=== PATIENT | male | born 1980 | race Caucasian/White ===

== ENCOUNTER 2017-10-26 11:03 | Observation (INO) ==
[2017-10-26 11:36] LABS: Bilirubin,Urine Negative (Negative); Blood,Urine Large (Negative); Clarity,Urine Turbid (Clear); Color,Urine Yellow (Yellow); Glucose,Urine (UA) Normal (Normal); Ketones,Urine Negative (Negative); Leukocyte Esterase,Urine Large (Negative); Nitrite,Urine Negative (Negative); Protein,Urine 100 mg/dL (Neg-Trace); Specific Gravity,Urine 1.029 (1.010-1.025); Urobilinogen,Urine Normal (Normal)
[2017-10-26 11:39] LABS: Hyaline Casts,Urine None Seen per lpf (None-Few); Squamous Epithelial Cell,Urine Few per lpf (None-Few); WBC,Urine TNTC per hpf (0-3)
[2017-10-26 11:53] LABS: RBC,Urine 15-30 per hpf (0-3)
[2017-10-26 11:55] LABS: Yeast,Urine Many per hpf (None Seen)
[2017-10-26 11:56] LABS: Bacteria,Urine Few per hpf (None-Few)
[2017-10-26] MEDS ORDERED: Ondansetron 4 MG/2 ML VIAL IVP ONE (13:17)
[2017-10-26] MEDS ORDERED: 0.9 % Sodium Chloride 1,000 ML IVC ONE (13:17)
[2017-10-26] MEDS ORDERED: Ketorolac 30 MG/ML VIAL IVP ONE (13:17)
--- NOTE | 2017-10-26 13:55 | Emergency Department Note ---
Disposition Clinical Impression: Pyelonephritis, Ureterolithiasis, MARIALUISA (acute kidney injury) Disposition: Admitted As Inpatient Condition: Good General Adult HPI - General Chief complaint: ED Abdominal Pain Stated complaint: Poss Kidney stone Time Seen by Provider: 10/26/17 12:48 Source: patient Limitations: no limitations Nursing Notes Reviewed: Yes Vital Signs Reviewed: Yes - History of Present Illness Pain Scale: 8 - Related Data Home Medications Medication Instructions Recorded Confirmed Buprenorphine HCl/Naloxone HCl 1 each SL BID 06/18/16 10/26/17 [Suboxone 8 mg-2 mg Sl Film] Ibuprofen [Motrin] 400 mg PO Q6H PRN 10/26/17 10/26/17 Allergies Allergy/AdvReac Type Severity Reaction Status Date / Time hydrocodone AdvReac Palpitation Verified 04/14/16 11:43 s tramadol AdvReac Palpitation Verified 04/14/16 11:43 s Past Medical History - Past Medical History Medical history: Reports: no medical history Surgical history: Reports: no surgical history Psychiatric history: Reports: no psych history, other - Social History Smoking Status: Current every day smoker Smokeless Tobacco Status: No Alcohol use: Reports: none Drug use: Reports: none, other Physical Exam - General Limitations: no limitations General appearance: alert, in no apparent distress Course Vital Signs Temperature 98.0 F 10/26/17 11:16 Pulse Rate 78 10/26/17 11:16 Respiratory Rate 18 10/26/17 11:16 Blood Pressure 156/94 10/26/17 11:16 O2 Sat by Pulse Oximetry 98 10/26/17 11:16 Temperature 99.3 F 10/26/17 12:43 Pulse Rate 97 10/26/17 16:16 Respiratory Rate 16 10/26/17 16:16 Blood Pressure 144/80 10/26/17 16:16 O2 Sat by Pulse Oximetry 98 10/26/17 16:16 Oxygen Delivery Oxygen Delivery Room Air Medical Decision Making - MDM Narrative Medical decision making narrative: This documentation is done with the assistance of Dragon dictation. There may be inaccuracies in company manager or spelling and typographical errors. I examined this patient and my medical decision-making was reviewed with the Resident Physician. I agree with the documented findings, disposition and treatment plan as described except to the extent set forth below. Patient seen and evaluated by Dr. Thomas and myself, I agree with his evaluation and management plan, supervised the care of the patient's stay. Patient presents today with bilateral flank pain left greater than right. History of stents years ago first with some thick kidney stone at the time. No history of pyelonephritis. Patient is comfortable at this time his urinalysis shows a lot of white cells in urine. Benadryl workup on him CT his abdomen to rule out stone and other pathology than reassessed. He is in agreement with this plan. 1427 hrs.: Patient has difficulty with IV access is former heroin addict. One of her best nurses try to put an IV and was unable to her and consult invasive line treatment for midline placement. He is in agreement with plan. Abdomen/Pelvis CT 10/26/17 13:22 IMPRESSION: 1. Mild left hydronephrosis and hydroureter, secondary to a 3-4 mm calculus in the distal left ureter. 2. Punctate right nephrolithiasis without evidence for right-sided obstructive uropathy. 3. Mild bibasilar atelectasis and trace pleural fluid. 4. Broad-based disc bulge at L1-L2, resulting in at least mild spinal canal stenosis at this level. D/ / 10/26/2017 14:56:48 Sherice Metz / marva Interpreting Provider: Sherice Metz 1500: Patient was referred to Dr. Stewart for urology he is in the department noticing the patient. Estimated minimal to the hospitalist with neurology consulting. Patient is difficult to get an IV access and so where having the invasive line team come to see him. 1700 hrs.: They really get an IV line in here. He has got his IV antibiotics and medications feeling better will bring him into the hospital. He should say agreement with plan impressions UTI with kidney stone. - Lab Data Result diagrams: 10/26/17 15:47 10/26/17 13:57 Lab Results 10/26/17 10/26/17 10/26/17 Range/Units 11:17 13:57 13:57 WBC (4.3-11.1) K/mcL RBC (4.19-5.50) M/mcL Hgb (12.9-16.9) g/dL Hct (37.5-50.1) % MCV (83.0-100.0) fL MCH (28.0-33.3) pg MCHC (31.6-35.5) g/dL RDW (11.5-14.5) % Plt Count (140-400) K/mcL MPV (9.4-12.4) fL Immature Gran % (0-4) % Seg Neutrophils % % Lymphocytes % % Monocytes % % Eosinophils % % Basophils % % Neutrophils # (1.6-8.9) K/mcL Lymphocytes # (0.6-4.6) K/mcL Monocytes # (0.0-1.3) K/mcL Eosinophils # (0.0-0.6) K/mcL Basophils # (0.0-0.2) K/mcL Sodium 136 (136-145) mEq/L Potassium 4.5 (3.5-5.1) mEq/L Chloride 108 H (98-107) mEq/L Carbon Dioxide 20 L (23-29) mEq/L BUN 23 H (6-20) mg/dL Creatinine 1.53 H (0.70-1.30) mg/dL Est GFR ( Amer) > 60 (> 60) Est GFR (Non-Af Amer) 51 L (> 60) BUN/Creatinine Ratio 15 (6-26) Glucose 156 H (70-105) mg/dL Calculated Osmolality 289 (280-300) Calcium 9.4 (8.6-10.3) mg/dL Total Bilirubin 0.4 (0.3-1.0) mg/dL Direct Bilirubin 0.1 (0.0-0.2) mg/dL Indirect Bilirubin 0.3 (0.0-1.2) mg/dL AST 22 (13-39) Units/L ALT 32 (7-52) Units/L Alkaline Phosphatase 68 (34-104) Units/L Serum Total Protein 6.6 (6.4-8.9) g/dL Albumin 3.7 (3.5-5.7) g/dL Globulin 2.9 (2.4-3.5) g/dL Albumin/Globulin Ratio 1.3 (1.1-2.2) Lipase 15 (11-82) Units/L Urine Color Yellow (Yellow) Urine Clarity Turbid A (Clear) Urine pH 6.0 (5.0-8.0) pH Units Ur Specific [place] 1.029 H (1.010-1.025) Urine Protein 100 H (Neg-Trace) mg/dL Urine Glucose (UA) Normal (Normal) mg/dL Urine Ketones Negative (Negative) mg/dL Urine Blood Large H (Negative) Urine Nitrite Negative (Negative) Urine Bilirubin Negative (Negative) Urine Urobilinogen Normal (Normal) mg/dL Ur Leukocyte Esterase Large H (Negative) Urine Microscopic RBC 15-30 H (0-3) per hpf Urine Microscopic WBC TNTC H (0-3) per hpf Ur Squamous Epith Cells Few (None-Few) per lpf Urine Bacteria Few (None-Few) per hpf Hyaline Casts None Seen (None-Few) per lpf Urine Yeast Many H (None Seen) per hpf Ur Culture Indicated? YES A (NO) Specimen Rejected Clotted 10/26/17 Range/Units 15:47 WBC 11.5 H (4.3-11.1) K/mcL RBC 4.55 (4.19-5.50) M/mcL Hgb 12.8 L (12.9-16.9) g/dL Hct 38.5 (37.5-50.1) % MCV 84.6 (83.0-100.0) fL MCH 28.1 (28.0-33.3) pg MCHC 33.2 (31.6-35.5) g/dL RDW 13.9 (11.5-14.5) % Plt Count 169 (140-400) K/mcL MPV 11.0 (9.4-12.4) fL Immature Gran % 0.5 (0-4) % Seg Neutrophils % 84.2 % Lymphocytes % 9.1 % Monocytes % 4.9 % Eosinophils % 1.0 % Basophils % 0.3 % Neutrophils # 9.7 H (1.6-8.9) K/mcL Lymphocytes # 1.0 (0.6-4.6) K/mcL Monocytes # 0.6 (0.0-1.3) K/mcL Eosinophils # 0.1 (0.0-0.6) K/mcL Basophils # 0.0 (0.0-0.2) K/mcL Sodium (136-145) mEq/L Potassium (3.5-5.1) mEq/L Chloride (98-107) mEq/L Carbon Dioxide (23-29) mEq/L BUN (6-20) mg/dL Creatinine (0.70-1.30) mg/dL Est GFR ( Amer) (> 60) Est GFR (Non-Af Amer) (> 60) BUN/Creatinine Ratio (6-26) Glucose (70-105) mg/dL Calculated Osmolality (280-300) Calcium (8.6-10.3) mg/dL Total Bilirubin (0.3-1.0) mg/dL Direct Bilirubin (0.0-0.2) mg/dL Indirect Bilirubin (0.0-1.2) mg/dL AST (13-39) Units/L ALT (7-52) Units/L Alkaline Phosphatase (34-104) Units/L Serum Total Protein (6.4-8.9) g/dL Albumin (3.5-5.7) g/dL Globulin (2.4-3.5) g/dL Albumin/Globulin Ratio (1.1-2.2) Lipase (11-82) Units/L Urine Color (Yellow) Urine Clarity (Clear) Urine pH (5.0-8.0) pH Units Ur Specific [place] (1.010-1.025) Urine Protein (Neg-Trace) mg/dL Urine Glucose (UA) (Normal) mg/dL Urine Ketones (Negative) mg/dL Urine Blood (Negative) Urine Nitrite (Negative) Urine Bilirubin (Negative) Urine Urobilinogen (Normal) mg/dL Ur Leukocyte Esterase (Negative) Urine Microscopic RBC (0-3) per hpf Urine Microscopic WBC (0-3) per hpf Ur Squamous Epith Cells (None-Few) per lpf Urine Bacteria (None-Few) per hpf Hyaline Casts (None-Few) per lpf Urine Yeast (None Seen) per hpf Ur Culture Indicated? (NO) Specimen Rejected
--- NOTE | 2017-10-26 14:03 | Emergency Department Note ---
Disposition Clinical Impression: Pyelonephritis, Ureterolithiasis, MARIALUISA (acute kidney injury) Disposition: Admitted As Inpatient Condition: Good Referrals: NONE,PCP [Primary Care Provider] - Forms: ED Satisfaction Letter, Work/School Release Abdominal Pain HPI - General Chief Complaint: ED Abdominal Pain Stated Complaint: Poss Kidney stone Time Seen by Provider: 10/26/17 12:48 Source: patient Mode of arrival: private vehicle Limitations: no limitations Nursing Notes Reviewed: Yes Vital Signs Reviewed: Yes - History of Present Illness HPI Narrative: 37-year-old male prior history of nephrolithiasis, drug abuse currently on Suboxone who presents to the ER with a chief complaint of low back pain, nausea , chills and subjective fevers. Reports symptoms for a few days. He was seen in an urgent care today where they checked his urine and told him to come here. Reports a remote history of ureteral stent 12 years ago due to obstructive uropathy. He denies any gross hematuria. No fevers at home but he has had subjective fevers and chills. No other complaints. Pt Subjective Complaint: abdominal pain, flank pain Onset (ago): day(s) Consistency: intermittent Location: L flank, R flank Pain Severity: moderate Pain Scale: 8 Quality: stabbing Radiation: none Migration to: no migration Improves with: nothing Worsens with: nothing Associated symptoms: Reports: nausea, vomiting, fever. Denies: diarrhea, dysuria, hematuria Treatments prior to arrival: none - Related Data Home Medications Medication Instructions Recorded Confirmed Buprenorphine HCl/Naloxone HCl 1 each SL BID 06/18/16 10/26/17 [Suboxone 8 mg-2 mg Sl Film] Ibuprofen [Motrin] 400 mg PO Q6H PRN 10/26/17 10/26/17 Allergies Allergy/AdvReac Type Severity Reaction Status Date / Time hydrocodone AdvReac Palpitation Verified 04/14/16 11:43 s tramadol AdvReac Palpitation Verified 04/14/16 11:43 s All systems ED: reviewed and negative except as stated. Constitutional: Reports: fever, chills Gastrointestinal: Reports: abdominal pain, nausea, vomiting. Denies: diarrhea Genitourinary: Denies: dysuria, hematuria Abdominal Pain PMH - Past Medical History Medical history: Reports: no medical history Male Surgical History: Reports: orthopedic, other Psychiatric history: Reports: no psych history, other - Social History Smoking status: Current every day smoker Alcohol use: Reports: none Drug use: Reports: none, other Physical Exam - General Limitations: no limitations General appearance: alert, in no apparent distress - Head Head exam: atraumatic, normocephalic - Eye Eye exam: Present: normal appearance - ENT ENT exam: normal exam - Neck Neck exam: Present: normal inspection, full ROM - Chest Chest inspection: Present: normal inspection, symmetric chest wall rise - Respiratory Respiratory exam: Present: normal lung sounds bilaterally - Cardiovascular Cardiovascular exam: Present: regular rate, normal rhythm, normal heart sounds - Abdominal Exam Abdominal exam: Present: soft, Non-Tender. Absent: tenderness, distention, guarding, rigidity - Extremities Exam Extremities exam: Present: normal inspection, full ROM - Expanded Upper Extremity Exam Shoulder exam: Present: normal inspection, full ROM Arm exam: Present: normal inspection, full ROM Elbow exam: Present: normal inspection, full ROM Forearm/Wrist exam: Present: normal inspection, full ROM Hand exam: Present: normal inspection, full ROM - Expanded Lower Extremity Exam Hip/Pelvis exam: Present: normal inspection, full ROM Upper leg exam: Present: normal inspection, full ROM Knee exam: Present: normal inspection, full ROM Lower leg exam: Present: normal inspection, full ROM Ankle exam: Present: normal inspection, full ROM Foot/toe exam: Present: normal inspection, full ROM - Back Exam Back exam: Present: CVA tenderness (R), CVA tenderness (L) - Skin Skin exam: Present: warm, dry Course Course Narrative: Patient seen and examined. Urinalysis does demonstrate some inflammatory cells. We will get a CT scan of the abdomen and pelvis as well as labs. Patient be given some IV fluids, Toradol and Zofran. - Reevaluation(s) Reevaluation #1: Patient noted to have a temperature 103. Tylenol ordered. Reevaluation #2: Discussed results of imaging and labs with the patient. He is agreeable with being admitted to the hospital. - Consultations Consultation #1: Spoke with the on-call urologist in the emergency department. Discussed the patient's history imaging and labs. He will see the patient in consultation. Admit to the hospitalist service. Vital Signs Temperature 98.0 F 10/26/17 11:16 Pulse Rate 78 10/26/17 11:16 Respiratory Rate 18 10/26/17 11:16 Blood Pressure 156/94 10/26/17 11:16 O2 Sat by Pulse Oximetry 98 10/26/17 11:16 Temperature 99.3 F 10/26/17 12:43 Pulse Rate 97 10/26/17 16:16 Respiratory Rate 16 10/26/17 16:16 Blood Pressure 144/80 10/26/17 16:16 O2 Sat by Pulse Oximetry 98 10/26/17 16:16 Oxygen Delivery Oxygen Delivery Room Air Abdominal Pain - MDM Narrative Medical decision making narrative: 37-year-old male presents to the ER due to bilateral flank pain for several days. Noted to be initially afebrile here although he did have a temperature up to 103. Given antipyretics for this. He has bilateral flank pain. CT scan demonstrating a distal left ureteral stone. Urinalysis demonstrates inflammatory cells as well as [place]. Noted to have a slight leukocytosis and mild history of present illness. Patient given Rocephin and Diflucan. Evaluated by urology in the department. Admitted to the hospitalist service. - Lab Data Lab results reviewed: Yes I reviewed the patient's lab results. Result diagrams: 10/26/17 15:47 10/26/17 13:57 Lab Results 10/26/17 10/26/17 10/26/17 Range/Units 11:17 13:57 13:57 WBC (4.3-11.1) K/mcL RBC (4.19-5.50) M/mcL Hgb (12.9-16.9) g/dL Hct (37.5-50.1) % MCV (83.0-100.0) fL MCH (28.0-33.3) pg MCHC (31.6-35.5) g/dL RDW (11.5-14.5) % Plt Count (140-400) K/mcL MPV (9.4-12.4) fL Immature Gran % (0-4) % Seg Neutrophils % % Lymphocytes % % Monocytes % % Eosinophils % % Basophils % % Neutrophils # (1.6-8.9) K/mcL Lymphocytes # (0.6-4.6) K/mcL Monocytes # (0.0-1.3) K/mcL Eosinophils # (0.0-0.6) K/mcL Basophils # (0.0-0.2) K/mcL Sodium 136 (136-145) mEq/L Potassium 4.5 (3.5-5.1) mEq/L Chloride 108 H (98-107) mEq/L Carbon Dioxide 20 L (23-29) mEq/L BUN 23 H (6-20) mg/dL Creatinine 1.53 H (0.70-1.30) mg/dL Est GFR ( Amer) > 60 (> 60) Est GFR (Non-Af Amer) 51 L (> 60) BUN/Creatinine Ratio 15 (6-26) Glucose 156 H (70-105) mg/dL Calculated Osmolality 289 (280-300) Calcium 9.4 (8.6-10.3) mg/dL Total Bilirubin 0.4 (0.3-1.0) mg/dL Direct Bilirubin 0.1 (0.0-0.2) mg/dL Indirect Bilirubin 0.3 (0.0-1.2) mg/dL AST 22 (13-39) Units/L ALT 32 (7-52) Units/L Alkaline Phosphatase 68 (34-104) Units/L Serum Total Protein 6.6 (6.4-8.9) g/dL Albumin 3.7 (3.5-5.7) g/dL Globulin 2.9 (2.4-3.5) g/dL Albumin/Globulin Ratio 1.3 (1.1-2.2) Lipase 15 (11-82) Units/L Urine Color Yellow (Yellow) Urine Clarity Turbid A (Clear) Urine pH 6.0 (5.0-8.0) pH Units Ur Specific [place] 1.029 H (1.010-1.025) Urine Protein 100 H (Neg-Trace) mg/dL Urine Glucose (UA) Normal (Normal) mg/dL Urine Ketones Negative (Negative) mg/dL Urine Blood Large H (Negative) Urine Nitrite Negative (Negative) Urine Bilirubin Negative (Negative) Urine Urobilinogen Normal (Normal) mg/dL Ur Leukocyte Esterase Large H (Negative) Urine Microscopic RBC 15-30 H (0-3) per hpf Urine Microscopic WBC TNTC H (0-3) per hpf Ur Squamous Epith Cells Few (None-Few) per lpf Urine Bacteria Few (None-Few) per hpf Hyaline Casts None Seen (None-Few) per lpf Urine Yeast Many H (None Seen) per hpf Ur Culture Indicated? YES A (NO) Specimen Rejected Clotted 10/26/17 Range/Units 15:47 WBC 11.5 H (4.3-11.1) K/mcL RBC 4.55 (4.19-5.50) M/mcL Hgb 12.8 L (12.9-16.9) g/dL Hct 38.5 (37.5-50.1) % MCV 84.6 (83.0-100.0) fL MCH 28.1 (28.0-33.3) pg MCHC 33.2 (31.6-35.5) g/dL RDW 13.9 (11.5-14.5) % Plt Count 169 (140-400) K/mcL MPV 11.0 (9.4-12.4) fL Immature Gran % 0.5 (0-4) % Seg Neutrophils % 84.2 % Lymphocytes % 9.1 % Monocytes % 4.9 % Eosinophils % 1.0 % Basophils % 0.3 % Neutrophils # 9.7 H (1.6-8.9) K/mcL Lymphocytes # 1.0 (0.6-4.6) K/mcL Monocytes # 0.6 (0.0-1.3) K/mcL Eosinophils # 0.1 (0.0-0.6) K/mcL Basophils # 0.0 (0.0-0.2) K/mcL Sodium (136-145) mEq/L Potassium (3.5-5.1) mEq/L Chloride (98-107) mEq/L Carbon Dioxide (23-29) mEq/L BUN (6-20) mg/dL Creatinine (0.70-1.30) mg/dL Est GFR ( Amer) (> 60) Est GFR (Non-Af Amer) (> 60) BUN/Creatinine Ratio (6-26) Glucose (70-105) mg/dL Calculated Osmolality (280-300) Calcium (8.6-10.3) mg/dL Total Bilirubin (0.3-1.0) mg/dL Direct Bilirubin (0.0-0.2) mg/dL Indirect Bilirubin (0.0-1.2) mg/dL AST (13-39) Units/L ALT (7-52) Units/L Alkaline Phosphatase (34-104) Units/L Serum Total Protein (6.4-8.9) g/dL Albumin (3.5-5.7) g/dL Globulin (2.4-3.5) g/dL Albumin/Globulin Ratio (1.1-2.2) Lipase (11-82) Units/L Urine Color (Yellow) Urine Clarity (Clear) Urine pH (5.0-8.0) pH Units Ur Specific [place] (1.010-1.025) Urine Protein (Neg-Trace) mg/dL Urine Glucose (UA) (Normal) mg/dL Urine Ketones (Negative) mg/dL Urine Blood (Negative) Urine Nitrite (Negative) Urine Bilirubin (Negative) Urine Urobilinogen (Normal) mg/dL Ur Leukocyte Esterase (Negative) Urine Microscopic RBC (0-3) per hpf Urine Microscopic WBC (0-3) per hpf Ur Squamous Epith Cells (None-Few) per lpf Urine Bacteria (None-Few) per hpf Hyaline Casts (None-Few) per lpf Urine Yeast (None Seen) per hpf Ur Culture Indicated? (NO) Specimen Rejected - Radiology Data Radiology results reviewed: Yes I reviewed the patient's radiology results. Abdomen/Pelvis CT 10/26/17 13:22 IMPRESSION: 1. Mild left hydronephrosis and hydroureter, secondary to a 3-4 mm calculus in the distal left ureter. 2. Punctate right nephrolithiasis without evidence for right-sided obstructive uropathy. 3. Mild bibasilar atelectasis and trace pleural fluid. 4. Broad-based disc bulge at L1-L2, resulting in at least mild spinal canal stenosis at this level. D/ / 10/26/2017 14:56:48 Sherice Metz / marva Interpreting Provider: Sherice Alarcon - Dorian Situation: Demographics, MOA Background: Presenting Complaint, Relevant PMH, Meds, & Allergies Assessment: Vital Signs, Course and respsone to treatment, Exam Concerns, Patient/Family Expectation, Pertinant Lab Results Recommendation: Barrier(s) to disposition, Recommendation based on pending studies, treatments, or consults S.BGraciela Report Given to: Dr. Luly Alarcon Repor Time: 17:39
[2017-10-26 14:59] LABS: Alanine Aminotransferase 32 Units/L (7-52); Albumin 3.7 g/dL (3.5-5.7); Albumin/Globulin Ratio 1.3 (1.1-2.2); Alkaline Phosphatase 68 Units/L (34-104); Aspartate Amino Transferase 22 Units/L (13-39); BUN/Creatinine Ratio 15 (6-26); Bilirubin,Direct 0.1 mg/dL (0.0-0.2); Bilirubin,Indirect 0.3 mg/dL (0.0-1.2); Bilirubin,Total 0.4 mg/dL (0.3-1.0); Blood Urea Nitrogen 23 mg/dL (6-20); Calcium 9.4 mg/dL (8.6-10.3); Carbon Dioxide 20 mEq/L (23-29); Chloride 108 mEq/L (98-107); Globulin 2.9 g/dL (2.4-3.5); Glucose 156 mg/dL (70-105); Lipase 15 Units/L (11-82); Osmolality,Calculated 289 (280-300); Potassium 4.5 mEq/L (3.5-5.1); Sodium 136 mEq/L (136-145); Total Protein 6.6 g/dL (6.4-8.9); eGFR For African Americans > 60 (> 60); eGFR For Non-African Americans 51 (> 60)
[2017-10-26] MEDS ORDERED: Ondansetron ODT 4 MG TAB.RAPDIS SL ONE (15:11)
[2017-10-26] MEDS ORDERED: Ketorolac 15 MG/ML VIAL IM ONE (15:11)
[2017-10-26] MEDS ORDERED: cefTRIAXone 1,000 MG in Water for inj. (sterile) 20 ML 10 ML IVP ONE (15:17)
[2017-10-26] MEDS ORDERED: Fluconazole 200 MG/100 ML 200 MG/100 ML BAG IVPB ONE (15:18)
[2017-10-26 15:59] LABS: Basophils % 0.3 %; Eosinophils # 0.1 K/mcL (0.0-0.6); Hematocrit 38.5 % (37.5-50.1); Hemoglobin 12.8 g/dL (12.9-16.9); Immature Granulocytes % 0.5 % (0-4); Lymphocytes % 9.1 %; Mean Corpuscular HGB Conc 33.2 g/dL (31.6-35.5); Mean Corpuscular Hemoglobin 28.1 pg (28.0-33.3); Mean Corpuscular Volume 84.6 fL (83.0-100.0); Monocytes # 0.6 K/mcL (0.0-1.3); Monocytes % 4.9 %; Neutrophils # 9.7 K/mcL (1.6-8.9); Platelet Count 169 K/mcL (140-400); Red Blood Count 4.55 M/mcL (4.19-5.50); Red Cell Distribution Width 13.9 % (11.5-14.5); Segmented Neutrophils % 84.2 %
--- NOTE | 2017-10-26 16:25 | Urology - Consult Note ---
Date of Encounter: 10/26/17 Time of Encounter: 16:23 - Assessment and Plan (1) Acute renal insufficiency Current Visit: Yes Status: Acute Assessment and plan: Patient also was some dehydration. Recommend IV fluids. (2) Left ureteral stone Current Visit: Yes Status: Acute Assessment and plan: Patient was brought into the hospital service. I have tentatively scheduled the patient for cystoscopy and left ureteral stent placement tomorrow in the operating room. If the patient passes the stone prior to this we will cancel the procedure. (3) Acute cystitis Current Visit: Yes Status: Acute Assessment and plan: While the patient's urinalysis does not show obvious bacterial infection he does have yeast on the UA. This is quite odd for patient without an indwelling catheter or known immunocompromised state. The ER physician was going to start the patient on Rocephin as well as Diflucan. We will continue to follow along closely. Qualifiers: Hematuria presence: without hematuria Qualified Code(s): N30.00 - Acute cystitis without hematuria Urology CN:HPI Consult date: 10/26/17 Reason for consult Urology: Hydronephrosis Requesting physician: Nahum Thomas History of present illness: Gamaliel is a 37-year-old male who presented to the emergency department today secondary to multiple complaints. His most significant complaints were abdominal discomfort with some left flank discomfort. He underwent a CT scan which revealed left distal 2-3 mm stone with some mild to moderate hydronephrosis proximal to this. Patient's urinalysis also showed yeast. Patient with fever supposedly at home of 103. He does have an elevated WBC count as well as a elevated creatinine. Patient's blood pressure is also markedly elevated. Past Med Surg Social Fam HX - Past Medical History Medical history: no medical history Psychiatric history: no psych history, other - Past Surgical History Surgical History: no surgical history - Social History Smoking Status: Current every day smoker Smokeless Tobacco Status: No Alcohol use: none Drug use: none, other Medications and Allergies Buprenorphine HCl/Naloxone HCl [Suboxone 8 mg-2 mg Sl Film] 1 each SL BID [History] Ibuprofen [Motrin] 600 mg PO Q6HR PRN #20 tab 06/18/16 [Rx] 3 Allergy/AdvReac Type Severity Reaction Status Date / Time hydrocodone AdvReac Palpitation Verified 04/14/16 11:43 s tramadol AdvReac Palpitation Verified 04/14/16 11:43 s Review of Systems - Constitutional fever(s), no chills - EENT Nose, mouth and throat: headache(s), no dizziness - Cardiovascular no chest pain - Respiratory no cough - Gastrointestinal abdominal pain - Genitourinary as per HPI - Musculoskeletal back pain - Integumentary no erythema, no lesions, no rash - Neurological no confusion, no weakness - Psychiatric no confusion - Hematologic/Lymphatic no lymphadenopathy Exam Initial Vital Signs Temp Pulse Resp BP Pulse Ox 98.0 F 78 18 156/94 98 10/26/17 11:16 10/26/17 11:16 10/26/17 11:16 10/26/17 11:16 10/26/17 11:16 - General physical appearance Present: well developed, moderate distress - Eyes Present: normal ocular movement. Absent: icteric - Neck Present: no lymphadenopathy - Respiratory Present: normal respiratory effort - Cardiovascular Cardiovascular exam IM: RRR - Abdomen Abdomen: Present: soft. Absent: suprapubic tenderness - Genitourinary normal penis with no external lesions - Integumentary Present: no rash, no abnormal pigmentation. Absent: lesions - Neurologic Absent: disoriented, confused Urology Results - Labs 10/26/17 15:47 10/26/17 13:57 Abnormal lab results WBC 11.5 K/mcL (4.3-11.1) H 10/26/17 15:47 Hgb 12.8 g/dL (12.9-16.9) L 10/26/17 15:47 Neutrophils # 9.7 K/mcL (1.6-8.9) H 10/26/17 15:47 Chloride 108 mEq/L (98-107) H 10/26/17 13:57 Carbon Dioxide 20 mEq/L (23-29) L 10/26/17 13:57 BUN 23 mg/dL (6-20) H 10/26/17 13:57 Creatinine 1.53 mg/dL (0.70-1.30) H 10/26/17 13:57 Est GFR (Non-Af Amer) 51 (> 60) L 10/26/17 13:57 Glucose 156 mg/dL (70-105) H 10/26/17 13:57 Urine Clarity Turbid (Clear) A 10/26/17 11:17 Ur Specific [place] 1.029 (1.010-1.025) H 10/26/17 11:17 Urine Protein 100 mg/dL (Neg-Trace) H 10/26/17 11:17 Urine Blood Large (Negative) H 10/26/17 11:17 Ur Leukocyte Esterase Large (Negative) H 10/26/17 11:17 Urine Microscopic RBC 15-30 per hpf (0-3) H 10/26/17 11:17 Urine Microscopic WBC TNTC per hpf (0-3) H 10/26/17 11:17 Urine Yeast Many per hpf (None Seen) H 10/26/17 11:17 Ur Culture Indicated? YES (NO) A 10/26/17 11:17 Diabetes panel 10/26/17 Range/Units 13:57 Sodium 136 (136-145) mEq/L Potassium 4.5 (3.5-5.1) mEq/L Chloride 108 H (98-107) mEq/L Carbon Dioxide 20 L (23-29) mEq/L BUN 23 H (6-20) mg/dL Creatinine 1.53 H (0.70-1.30) mg/dL Glucose 156 H (70-105) mg/dL Calcium 9.4 (8.6-10.3) mg/dL AST 22 (13-39) Units/L ALT 32 (7-52) Units/L Alkaline Phosphatase 68 (34-104) Units/L Albumin 3.7 (3.5-5.7) g/dL Calcium panel 10/26/17 Range/Units 13:57 Calcium 9.4 (8.6-10.3) mg/dL Albumin 3.7 (3.5-5.7) g/dL Pituitary panel 10/26/17 Range/Units 13:57 Sodium 136 (136-145) mEq/L Potassium 4.5 (3.5-5.1) mEq/L Chloride 108 H (98-107) mEq/L Carbon Dioxide 20 L (23-29) mEq/L BUN 23 H (6-20) mg/dL Creatinine 1.53 H (0.70-1.30) mg/dL Glucose 156 H (70-105) mg/dL Calcium 9.4 (8.6-10.3) mg/dL Adrenal panel 10/26/17 Range/Units 13:57 Sodium 136 (136-145) mEq/L Potassium 4.5 (3.5-5.1) mEq/L Chloride 108 H (98-107) mEq/L Carbon Dioxide 20 L (23-29) mEq/L BUN 23 H (6-20) mg/dL Creatinine 1.53 H (0.70-1.30) mg/dL Glucose 156 H (70-105) mg/dL Calcium 9.4 (8.6-10.3) mg/dL Total Bilirubin 0.4 (0.3-1.0) mg/dL AST 22 (13-39) Units/L ALT 32 (7-52) Units/L Alkaline Phosphatase 68 (34-104) Units/L Albumin 3.7 (3.5-5.7) g/dL All other labs normal. - Imaging CT scan - abdomen: image reviewed CT scan - pelvis: image reviewed Consult Discharge Plan - Plan Referrals: NONE,PCP [Primary Care Provider] -
[2017-10-26] MEDS ORDERED: Ketorolac 15 MG/ML VIAL IVP PRN (19:57)
[2017-10-26] MEDS ORDERED: Ondansetron 4 MG/2 ML VIAL IVP PRN (19:57)
[2017-10-26] MEDS ORDERED: *HR* Promethazine 25 MG/ML VIAL IVP PRN (19:57)
[2017-10-26] MEDS ORDERED: Acetaminophen 325 MG TABLET PO PRN (19:57)
[2017-10-26] MEDS ORDERED: Naloxone 0.4 MG/ML INJ IVP PRN (19:57)
--- NOTE | 2017-10-26 20:05 | Internal Med History&Physical ---
Date of Encounter: 10/26/17 Time of Encounter: 16:30 Assessment and Plan (1) SIRS (systemic inflammatory response syndrome) Current visit: Yes Status: Acute He does meet SIRS criteria with elevated WBC, mild tachycardia and source of inf as UTI Will place the pt into Med Surg for observation IV hydration IV Abx Rocephin IV Toradol PRN for pain Cont suboxone for pain symptomatic and supportive care NPO after mid night Urology consulted scheduled for cystoscope with stent in AM (2) MARIALUISA (acute kidney injury) Current visit: Yes Status: Acute due to obstructive uropathy on IV fluids avoid nephro toxic meds Possible ureter stent in AM (3) Acute cystitis Current visit: Yes Status: Acute Qualifiers: Hematuria presence: without hematuria Qualified Code(s): N30.00 - Acute cystitis without hematuria (4) Left ureteral stone Current visit: Yes Status: Acute Urology on board (5) Opioid dependence in remission Current visit: Yes Status: Chronic cont Suboxone Internal Medicine - H&P: HPI Chief complaint: Left flank pain Admitted From: Emergency Dept Plans for Post Hospital Care: Home History of present illness: Mr. Day is a 37 year old male prior history of nephrolithiasis, narcotic / opioid drug abuse currently on Suboxone who presents to the ER with a chief complaint of low back pain more on left side, nausea, chills and subjective fevers from last 2-3 days, which seems to be progressively worsening.. He was seen in an urgent care today where they checked his urine and told him to come here. Reports a remote history of ureteral stent 12 years ago due to obstructive uropathy. He denies any gross hematuria. His CT of Abd in the ER showed mild left hydronephrosis , 3-4mm distal left ureter stone. Punctate Rt nephrolithiasis with no obstruction. Past Med Surg Social Fam HX - Past Medical History Medical history: other (Nephrolithiasis) Psychiatric history: other (Drug abuse) - Past Surgical History Surgical History: other (cystoscope with ureter stent in the past) - Social History Smoking Status: Current every day smoker Smokeless Tobacco Status: No Alcohol use: none Drug use: none - Additional Family History Additional family history: Reviewed and non contribuiotry to current problem Internal Medicine - H&P: Meds Buprenorphine HCl/Naloxone HCl [Suboxone 8 mg-2 mg Sl Film] 1 each SL BID [History] Ibuprofen [Motrin] 400 mg PO Q6H PRN 10/26/17 [History] 3 Allergy/AdvReac Type Severity Reaction Status Date / Time hydrocodone AdvReac Palpitation Verified 04/14/16 11:43 s tramadol AdvReac Palpitation Verified 04/14/16 11:43 s All Systems PM: A 10-system review of systems was performed and is negative for pertinent findings except as documented above in the HPI. Review of systems: Reviewed all the systems, everything is benign except the systems and symptoms I mentioned in HPI - Constitutional Vitals: Temp Pulse Resp BP Pulse Ox 99.2 F 92 17 110/72 96 10/26/17 18:49 10/26/17 18:49 10/26/17 18:49 10/26/17 18:49 10/26/17 18:49 General appearance: Present: mild distress, A&O X 3, answers questions appropriately - Head Head exam: Present: atraumatic, normal inspection - Neck Neck exam general surgery: Present: full ROM, supple - Respiratory Respiratory exam: Present: decreased breath sounds. Absent: rales, respiratory distress, wheezes - Cardiovascular Cardiovascular exam: Present: RRR, +S1, +S2. Absent: tachycardia - GI/Abdominal GI/Abdominal exam: Present: normal bowel sounds, soft, tenderness (Left flank and lowe abdomen). Absent: distended, guarding, rebound, rigid - Extremities Exam Extremities exam: Absent: calf tenderness, pedal edema, tenderness - Back Exam Back exam: Present: CVA tenderness (L). Absent: CVA tenderness (R) - Neurological Exam Neurological exam: Present: alert, oriented X3 - Psychiatric Psychiatric exam: Present: normal affect, normal mood Internal Med - H&P Results - Labs CBC & Chem 7: 10/26/17 15:47 10/26/17 13:57
[2017-10-26] MEDS: 0.9 % Sodium Chloride 1,000 ML IVC SCH (21:03)
[2017-10-26] MEDS: SUBOXONE SL SCH (22:30)
[2017-10-27] MEDS: 0.9 % Sodium Chloride 1,000 ML IVC SCH ×2 (05:18→16:41)
--- NOTE | 2017-10-27 07:01 | Urology Progress Note ---
Date of Encounter: 10/27/17 Time of Encounter: 07:00 - Assessment and Plan (1) Acute renal insufficiency Current Visit: Yes Status: Acute Assessment and plan: labs pending. (2) Left ureteral stone Current Visit: Yes Status: Acute Assessment and plan: to OR today for cysto and left ureteral stent placement. (3) Acute cystitis Current Visit: Yes Status: Acute Assessment and plan: continue broad spectrum abx at this time. Qualifiers: Hematuria presence: without hematuria Qualified Code(s): N30.00 - Acute cystitis without hematuria Progress Note Narrative: Patient seen this am. fever to 100 last night. pain better. no n/v. Objective Initial Vital Signs Temp Pulse Resp BP Pulse Ox 98.0 F 78 18 156/94 98 10/26/17 11:16 10/26/17 11:16 10/26/17 11:16 10/26/17 11:16 10/26/17 11:16 - General physical appearance Present: well developed - Abdomen Present: soft. Absent: distended - Labs 10/26/17 15:47 10/26/17 13:57 Consult Discharge Plan - Plan Referrals: NONE,PCP [Primary Care Provider] -
[2017-10-27 07:19] LABS: Basophils # 0.1 K/mcL (0.0-0.2); Basophils % 0.4 %; Eosinophils # 0.6 K/mcL (0.0-0.6); Eosinophils % 5.2 %; Hemoglobin 11.6 g/dL (12.9-16.9); Immature Granulocytes % 1.4 % (0-4); Lymphocytes # 1.6 K/mcL (0.6-4.6); Lymphocytes % 14.6 %; Mean Corpuscular HGB Conc 34.1 g/dL (31.6-35.5); Mean Corpuscular Hemoglobin 28.6 pg (28.0-33.3); Mean Platelet Volume 12.2 fL (9.4-12.4); Monocytes # 1.4 K/mcL (0.0-1.3); Monocytes % 12.1 %; Neutrophils # 7.4 K/mcL (1.6-8.9); Nucleated Red Blood Cells 0.2 /100 WBC (0); Platelet Count 140 K/mcL (140-400); Red Blood Count 4.05 M/mcL (4.19-5.50); Red Cell Distribution Width 14.1 % (11.5-14.5); Segmented Neutrophils % 66.3 %
[2017-10-27] MEDS: SUBOXONE SL SCH (07:31)
[2017-10-27] MEDS ORDERED: cefTRIAXone 1,000 MG in Water for inj. (sterile) 10 ML IVP SCH (09:00)
[2017-10-27] MEDS ORDERED: Fluconazole 100 MG TABLET PO SCH (09:00)
--- NOTE | 2017-10-27 10:07 | Internal Med Progress Note ---
<Lara Greenberg - Last Filed: 10/27/17 12:55> Date of Encounter: 10/27/17 Time of Encounter: 10:03 - Assessment and plan (1) Left ureteral stone Current Visit: Yes Status: Acute Assessment and plan: Left 3-4mm calculus and distal left ureter causing mild left hydronephrosis and Hydroureter demonstrated by abdominal CT Bilateral CVA tenderness, dysuria, hematuria. 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 A friend gave him sumatriptan which seemed to help temporarily. He reports it is throbbing in nature and that it is in the base of his head and neck extends up to the top of his head. he denies aura, nausea, vomiting, sensitivity to light or sound. -Start sumatriptan Qualifiers: Qualified Code(s): R51 - Headache (6) DVT prophylaxis Current Visit: Yes Status: Acute Assessment and plan: ambulate TID - Subjective Interval history: Sitting up in bed alongside his fiance. He reports he still has back pain and that he is having burning with urination. He admits to fever, chills, and headache. he denies chest pain, shortness of breathe. - Constitutional Vitals: Temp Pulse Resp BP Pulse Ox 98.5 F 76 16 116/71 96 10/27/17 06:47 10/27/17 06:47 10/27/17 06:47 10/27/17 06:47 10/27/17 07:45 General appearance: Present: mild distress, A&O X 3, answers questions appropriately Exam: Gen.: Vitals noted. No acute distress. AAOx3 HEENT: oropharynx clear, Normocephalic, atraumatic Neck: Supple. No adenopathy. tender at nape of neck Cardiac: RRR, no murmur, +S1/S2 Pulmonary: CTA bilaterally, no wheezes, rales or rhonchi, equal chest expansion Abdomen: soft, nontender, Bowel sounds noted, no guarding Back: b/l CVA tender MSK: ROM intact, no joint swelling noted Neuro: A&Ox3, moves all extremities, no focal deficits Psych: Appropriate mood and behavior Internal Medicine: Result - Labs CBC & Chem 7: 10/27/17 06:43 10/26/17 13:57 Labs: Short CBC 10/27/17 Range/Units 06:43 WBC 11.2 H (4.3-11.1) K/mcL Hgb 11.6 L (12.9-16.9) g/dL Hct 34.0 L (37.5-50.1) % Plt Count 140 (140-400) K/mcL Neutrophils # 7.4 (1.6-8.9) K/mcL Consult Discharge Plan - Plan Referrals: NONE,PCP [Primary Care Provider] - <Golden Oneil T - Last Filed: 10/27/17 15:04> Date of Encounter: 10/27/17 - Constitutional Vitals: Temp Pulse Resp BP Pulse Ox 99.4 F 89 20 147/92 96 10/27/17 14:36 10/27/17 14:36 10/27/17 14:36 10/27/17 14:36 10/27/17 14:36 Internal Medicine: Result - Labs CBC & Chem 7: 10/27/17 06:43 10/27/17 12:50 Labs: Short CBC 10/27/17 Range/Units 06:43 WBC 11.2 H (4.3-11.1) K/mcL Hgb 11.6 L (12.9-16.9) g/dL Hct 34.0 L (37.5-50.1) % Plt Count 140 (140-400) K/mcL Neutrophils # 7.4 (1.6-8.9) K/mcL BMP 10/27/17 12:50 Sodium 135 L Potassium 4.7 Chloride 107 Carbon Dioxide 27 BUN 17 Creatinine 1.26 Glucose 116 H Calcium 8.1 L - Impressions Impressions Fluoroscopy 10/27/17 00:00 IMPRESSION: Intraprocedural fluoroscopic spot images as above. See separate procedure report for more information. D/ / Mohsen Potter MD / Mohsen Potter MD Interpreting Provider: Mohsen Potter MD X-Ray 10/27/17 00:00 IMPRESSION: Intraprocedural fluoroscopic spot images as above. See separate procedure report for more information. D/ / Mohsen Potter MD / Mohsen Potter MD Interpreting Provider: Mohsen Potter MD - Attending Attestation I examined this patient and my medical decision-making was reviewed with the Resident Physician. I agree with the documented findings, disposition and treatment plan as described except to the extent set forth below. seen and evaluated at the bedside. 57-years old male with opiate dependence, history of ureteral stones admitted and being managed for sepsis secondary to acute complicated cystitis He met sepsis criteria with fever >100.4, tachycardia, urinary source of infection, WBC is <88775. He also has MARIALUISA which is possibly postrenal He is complaining of headaches that are around his neck radiating to his forehead, no other neurologic symptoms. NO neck Stiffness. No meningeal signs. Physical exam is unremarkable Continue with antibiotics, continue with IV fluid hydration, follow final urine culture, for urologic procedure today Agree with Sumatriptan for migraine headaches. D/C NSAIDS Rest of details of the resident physicians documentation
[2017-10-27] MEDS ORDERED: *HR* Propofol 200 MG/20 ML VIAL IVP ONE ×2 (10:52→14:18)
[2017-10-27] MEDS ORDERED: *HR* FentaNYL (PF) 100 MCG/2 ML VIAL ONE ×2 (10:52→14:18)
[2017-10-27] MEDS ORDERED: Lidocaine -MPF 2% 2 ML VIAL ONE ×2 (10:54→14:18)
[2017-10-27] MEDS ORDERED: Ketamine *HR* 500 MG/10 ML MDV ONE (10:55)
[2017-10-27] MEDS ORDERED: *HR* Succinylcholine 200 MG/10 ML VIAL IVP ONE (10:55)
[2017-10-27] MEDS ORDERED: *HR* Rocuronium Bromide 50 MG/5 ML VIAL ONE (10:56)
[2017-10-27] MEDS ORDERED: Lidocaine -MPF 4% 5 ML AMPUL ONE (10:58)
[2017-10-27] MEDS ORDERED: *HR* Midazolam HCl 2 MG/2 ML VIAL ONE (11:00)
[2017-10-27] MEDS ORDERED: SUMAtriptan succinate 50 MG TABLET PO PRN ×2 (11:48→14:37)
--- NOTE | 2017-10-27 13:13 | Anesthesia Evaluation PreOp ---
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 Other Medical History: Denies Any Significant HX Alcohol Use: none Drug use: opiates (On chronic suboxone therapy for over 3 years.), marijuana Medications and Allergies Buprenorphine HCl/Naloxone HCl [Suboxone 8 mg-2 mg Sl Film] 1 each SL BID [History] Ibuprofen [Motrin] 400 mg PO Q6H PRN 10/26/17 [History] 3 Allergy/AdvReac Type Severity Reaction Status Date / Time hydrocodone AdvReac Palpitation Verified 04/14/16 11:43 s tramadol AdvReac Palpitation Verified 04/14/16 11:43 s - Meds/Allergy Pre-op Review Medications Reviewed: Yes Allergies Reviewed: Yes Beta Blockers on Current Med List: No Anesthesia Results - Labs 10/27/17 06:43 10/26/17 13:57 Anesthesia Exam Selected Entries 10/27/17 06:47 Temperature 98.5 F Pulse Rate 76 Respiratory Rate 16 Blood Pressure 116/71 Weight: 79 kg. NPO (# of Hours): over 8 hours - HEENT Pupil (Motor): Pupils equal Mallampati: II Teeth: Normal Oral Opening: Greater than 3 - Cardiac Rhythm: Regular Murmur: None - Pulmonary Breath Sounds: bilateral Clear Respiratory Effort: Symmetrical Anesthesia Assess/Plan ASA Score: 2 Modified [place] Scale for Level of Consciousness: Cooperative, oriented, and tranquil Anesthetic Plan: General Monitoring Plan: Standard Monitors Recovery Plan: PACU
[2017-10-27] MEDS ORDERED: *HR* Promethazine 25 MG/ML VIAL IVP PRN ×2 (13:15→14:37)
[2017-10-27] MEDS ORDERED: *HR* HYDROmorphone 2 MG TABLET PO PRN (13:15)
[2017-10-27] MEDS ORDERED: Ondansetron 4 MG/2 ML VIAL IVP ONE (13:15)
[2017-10-27] MEDS ORDERED: *HR* OxyCODONE Immed Rel 5 MG TABLET PO PRN (13:15)
[2017-10-27] MEDS ORDERED: MORPHINE SUL Oral CONC 10 MG/0.5 ML ORAL.SYG SL PRN (13:15)
[2017-10-27] MEDS ORDERED: *HR* Labetalol 20 MG/4 ML SYRINGE IVP PRN (13:15)
[2017-10-27] MEDS ORDERED: Albuterol 2.5 MG/3 ML NEBULIZER IH ONE (13:20)
[2017-10-27 13:34] LABS: Calcium 8.1 mg/dL (8.6-10.3); Carbon Dioxide 27 mEq/L (23-29); Chloride 107 mEq/L (98-107); Potassium 4.7 mEq/L (3.5-5.1); Sodium 135 mEq/L (136-145)
[2017-10-27 13:39] LABS: BUN/Creatinine Ratio 13 (6-26); Blood Urea Nitrogen 17 mg/dL (6-20); Glucose 116 mg/dL (70-105); Osmolality,Calculated 283 (280-300); eGFR For African Americans > 60 (> 60); eGFR For Non-African Americans > 60 (> 60)
--- NOTE | 2017-10-27 14:03 | Operative Note ---
Date of procedure: 10/27/17 Pre-op diagnosis: left distal ureteral stone with fever Post-op diagnosis: same Procedure: Cystoscopy and left 4.8 x 26 m ureteral stent placement Anesthesia: MARKA Surgeon: Jay Stewart Was there an assistant activities director present: No Estimated blood loss (cc): 0 Specimen: none Condition: stable Disposition: PACU Procedure in Detail: Patient was prepped and draped in normal sterile fashion. Timeout procedure performed. I then inserted the cystoscope into the patient's bladder. The left ureteral orifice cannulated using a sensor wire. I advanced this into the left kidney using fluoroscopy. There was a small amount of debris coming from the left kidney once the wire reached the kidney. I then placed a 4.8 x 26 cm ureteral stent with good curl seen in the left kidney and in the bladder. The bladder was drained and the procedure was ended.
[2017-10-27] MEDS ORDERED: Ondansetron 4 MG/2 ML VIAL ONE (14:18)
[2017-10-27] MEDS ORDERED: Dexamethasone 4 MG/ML VIAL ONE (14:18)
[2017-10-27] MEDS ORDERED: Naloxone 0.4 MG/ML INJ IVP PRN (14:37)
[2017-10-27] MEDS ORDERED: Ondansetron 4 MG/2 ML VIAL IVP PRN (14:37)
[2017-10-27] MEDS ORDERED: Acetaminophen 325 MG TABLET PO PRN (14:37)
--- NOTE | 2017-10-27 14:43 | Anesthesia Evaluation Post Op ---
Date of Encounter: 10/27/17 Time of Encounter: 14:45 - Vital Signs Vital Signs: Selected Entries 10/27/17 14:36 Temperature 99.4 F Pulse Rate 89 Respiratory Rate 20 Blood Pressure 147/92 O2 Sat by Pulse Oximetry 96 - Lungs Lungs: Clear Ascult./Percussion - Airway Airway: Non-obstructed - Cardiovascular Regular Rate - Mental Status Mental Status: Alert & Oriented, Answers Appropriately - Nausea Vomiting Nausea Vomiting: Not Present - Hydration Hydration: NPO - Discharge PostOp Status: Transfer Patient to floor
[2017-10-27] MEDS ORDERED: 0.9 % Sodium Chloride 1,000 ML IVC SCH (15:45)
[2017-10-27] MEDS: Nicotine 14 MG PATCH.TD24 TD SCH (16:37)
[2017-10-27] MEDS: NALOXONE HCL SL SCH (20:33)
[2017-10-27] MEDS: BUPRENORPHINE HCL SL SCH (20:33)
[2017-10-28 04:07] LABS: Basophils % 0.1 %; Eosinophils % 0.1 %; Hematocrit 33.8 % (37.5-50.1); Hemoglobin 11.5 g/dL (12.9-16.9); Immature Granulocytes % 0.4 % (0-4); Immature Platelets 7.2 % (1.1-6.1); Lymphocytes # 0.9 K/mcL (0.6-4.6); Lymphocytes % 9.5 %; Mean Corpuscular Hemoglobin 28.4 pg (28.0-33.3); Mean Corpuscular Volume 83.5 fL (83.0-100.0); Mean Platelet Volume 10.9 fL (9.4-12.4); Monocytes # 0.4 K/mcL (0.0-1.3); Monocytes % 4.6 %; Neutrophils # 8.2 K/mcL (1.6-8.9); Platelet Count 138 K/mcL (140-400); Red Blood Count 4.05 M/mcL (4.19-5.50); Red Cell Distribution Width 14.1 % (11.5-14.5); Segmented Neutrophils % 85.3 %
[2017-10-28] MEDS: 0.9 % Sodium Chloride 1,000 ML IVC SCH (06:12)
[2017-10-28 06:19] LABS: BUN/Creatinine Ratio 14 (6-26); Blood Urea Nitrogen 16 mg/dL (6-20); Calcium 8.8 mg/dL (8.6-10.3); Carbon Dioxide 23 mEq/L (23-29); Chloride 106 mEq/L (98-107); Glucose 279 mg/dL (70-105); Osmolality,Calculated 291 (280-300); Potassium 4.5 mEq/L (3.5-5.1); Sodium 135 mEq/L (136-145); eGFR For African Americans > 60 (> 60); eGFR For Non-African Americans > 60 (> 60)
[2017-10-28 07:18] VITALS: BP 159/80
[2017-10-28] MEDS ORDERED: Fluconazole 100 MG TABLET PO SCH (09:00)
[2017-10-28] MEDS ORDERED: cefTRIAXone 1,000 MG in Water for inj. (sterile) 10 ML IVP SCH (09:00)
[2017-10-28] MEDS: BUPRENORPHINE HCL SL SCH (09:15)
[2017-10-28] MEDS: NALOXONE HCL SL SCH (09:15)
[2017-10-28] MEDS: Nicotine 14 MG PATCH.TD24 TD SCH (09:18)
--- NOTE | 2017-10-28 10:30 | Urology Progress Note ---
Date of Encounter: 10/28/17 Time of Encounter: 10:25 - Assessment and Plan (1) Acute renal insufficiency Current Visit: Yes Status: Acute Assessment and plan: Resolved (2) Left ureteral stone Current Visit: Yes Status: Acute Assessment and plan: Patient is status post ureteral stent. Patient can follow-up in 2 weeks with me to discuss treatment of left ureteral stone. (3) Acute cystitis Current Visit: Yes Status: Acute Assessment and plan: After discussion with infectious disease recommended 2 weeks of Diflucan. We will also check HIV status. Qualifiers: Hematuria presence: without hematuria Qualified Code(s): N30.00 - Acute cystitis without hematuria Progress Note Narrative: Patient seen this a.m. Patient feels much better. Patient with positive yeast species urine. Objective Initial Vital Signs Temp Pulse Resp BP Pulse Ox 98.0 F 78 18 156/94 98 10/26/17 11:16 10/26/17 11:16 10/26/17 11:16 10/26/17 11:16 10/26/17 11:16 - General physical appearance Present: well developed - Abdomen Present: soft - Labs 10/28/17 03:44 10/28/17 03:44 Diabetes panel 10/27/17 10/28/17 Range/Units 12:50 03:44 Sodium 135 L 135 L (136-145) mEq/L Potassium 4.7 4.5 (3.5-5.1) mEq/L Chloride 107 106 (98-107) mEq/L Carbon Dioxide 27 23 (23-29) mEq/L BUN 17 16 (6-20) mg/dL Creatinine 1.26 1.13 (0.70-1.30) mg/dL Glucose 116 H 279 H (70-105) mg/dL Calcium 8.1 L 8.8 (8.6-10.3) mg/dL Calcium panel 10/27/17 10/28/17 Range/Units 12:50 03:44 Calcium 8.1 L 8.8 (8.6-10.3) mg/dL Pituitary panel 10/27/17 10/28/17 Range/Units 12:50 03:44 Sodium 135 L 135 L (136-145) mEq/L Potassium 4.7 4.5 (3.5-5.1) mEq/L Chloride 107 106 (98-107) mEq/L Carbon Dioxide 27 23 (23-29) mEq/L BUN 17 16 (6-20) mg/dL Creatinine 1.26 1.13 (0.70-1.30) mg/dL Glucose 116 H 279 H (70-105) mg/dL Calcium 8.1 L 8.8 (8.6-10.3) mg/dL Adrenal panel 10/27/17 10/28/17 Range/Units 12:50 03:44 Sodium 135 L 135 L (136-145) mEq/L Potassium 4.7 4.5 (3.5-5.1) mEq/L Chloride 107 106 (98-107) mEq/L Carbon Dioxide 27 23 (23-29) mEq/L BUN 17 16 (6-20) mg/dL Creatinine 1.26 1.13 (0.70-1.30) mg/dL Glucose 116 H 279 H (70-105) mg/dL Calcium 8.1 L 8.8 (8.6-10.3) mg/dL - VTE Documentation of Mechanical Device: Intermittent pneumatic compression device Consult Discharge Plan - Plan Referrals: Vaughn Yadav, EXTRUSION PROCESS OPERATOR [Advanced Practice Nurse] -
--- NOTE | 2017-10-28 10:43 | Discharge Summary ---
<Lara Greenberg - Last Filed: 10/28/17 11:06> Date of Encounter: 10/28/17 Time of Encounter: 10:42 - Discharge Diagnosis (1) Left ureteral stone Priority: Primary Status: Acute (2) Acute cystitis Priority: Secondary Status: Acute Qualifiers: Hematuria presence: without hematuria Qualified Code(s): N30.00 - Acute cystitis without hematuria (3) MARIALUISA (acute kidney injury) Priority: Secondary Status: Acute (4) Opioid dependence in remission Priority: Secondary Status: Chronic (5) Head ache Priority: Secondary Status: Acute Qualifiers: Qualified Code(s): R51 - Headache (6) DVT prophylaxis Priority: Secondary Status: Acute - Discharge Medications Prescriptions: Fluconazole [Diflucan] 100 mg PO DAILY #14 tablet Home Medications: Buprenorphine HCl/Naloxone HCl [Suboxone 8 mg-2 mg Sl Film] 1 each SL BID [History] Ibuprofen [Motrin] 400 mg PO Q6H PRN 10/26/17 [History] Fluconazole [Diflucan] 100 mg PO DAILY #14 tablet 10/28/17 [Rx] Allergies/Adverse Reactions: 3 Allergy/AdvReac Type Severity Reaction Status Date / Time hydrocodone AdvReac Palpitation Verified 04/14/16 11:43 s tramadol AdvReac Palpitation Verified 04/14/16 11:43 s Date of admission: 10/26/17 17:57 Primary care physician: PCP NONE Discharging clinician: Golden Oneil Anticipated date of discharge: 10/28/17 - Patient Status Disposition: Home, Self-Care Condition: Good Functional capacity at discharge: independent ambulation Overall status at discharge: patient is back to baseline - Discharge Instructions Follow Up With: Vaughn Yadav CNP [Advanced Practice Nurse] - Jay Stewart MD [Partnered Physician] - Additional Instructions: Finish Diflucan to completion follow-up with Dr. Stewart in 2 weeks for discussion on stone extraction return to the hospital should be developed fever, chills, worsening back pain. He should be called on the results of the HIV testing - Diet and Activity Activity: resume usual activities as tolerated Diet: advance to your usual diet Hospital course: Mr. Day is a 37 year old male with prior history of nephrolithiasis, narcotic / opioid drug abuse currently on Suboxone who presents to the ER with a chief complaint of low back pain more on left side, nausea, chills and subjective fevers from last 2-3 days, which seems to be progressively worsening.. He was seen in an urgent care today where they checked his urine and told him to come here. Reports a remote history of ureteral stent 12 years ago due to obstructive uropathy. He denies any gross hematuria. His CT of Abd in the ER showed mild left hydronephrosis , 3-4mm distal left ureter stone. Punctate Rt nephrolithiasis with no obstruction. Urology was consulted on the patient and he was admitted. Urinalysis: + blood, leukocyte esterase, yeast. The patient was taken to the OR by urology and microbiology lab assistant was placed. It was started on IV Rocephin and Diflucan. Urine culture was sent. He had an MARIALUISA that was secondary to obstructive uropathy due to left ureteral stone. The AK I continue to improve. Upon discharge she was afebrile, but blood cell count within normal limits, improved back pain. Urine culture grew yeast. Urology spoke with infectious disease who recommended HIV testing due to the yeast in the urine which was abnormal. The patient reported that he felt he was ready to go home. Urology scheduled a 2 week follow-up appointment with an outpatient. Infectious disease recommended the patient continue 2 weeks of Diflucan. The patient was informed that he would be called with the results of HIV testing. During admission the patient reported headache that he had for 5 days. Reported that it was throbbing in nature and that it is in the base of his head and neck extends up to the top of his head. Denied aura, nausea, vomiting, sensitivity to light or sound. This was thought to be a migraine vs tension headache. He was started on sumatriptan which resolved his headache. The patient had been alongside his girlfriend during admission. Upon discharge the patient was alert and oriented times 3 with full capacity and he stated a clear understanding of the treatment plan. - Time Spent with Patient Total time spent providing and/or coordinating discharge services: Greater than 30 minutes - Constitutional Vitals: Temp Pulse Resp BP Pulse Ox 97.6 F 53 16 159/80 97 10/28/17 07:11 10/28/17 07:11 10/28/17 07:11 10/28/17 07:11 10/28/17 07:11 General appearance: Present: mild distress, A&O X 3, answers questions appropriately Exam: Gen.: Vitals noted. No acute distress. AAOx3 HEENT: oropharynx clear, Normocephalic, atraumatic Neck: Supple. No adenopathy. Cardiac: RRR, no murmur, +S1/S2 Pulmonary: CTA bilaterally, no wheezes, rales or rhonchi, equal chest expansion Abdomen: soft, nontender, Bowel sounds noted, no guarding Back: Nontender throughout. MSK: ROM intact, no joint swelling noted Extremities: no BLE edema, nontender calf, no cyanosis or clubbing Neuro: A&Ox3, moves all extremities, no focal deficits Psych: Appropriate mood and behavior - VTE Documentation of Mechanical Device: Intermittent pneumatic compression device <Golden Oneil - Last Filed: 10/28/17 12:48> Date of Encounter: 10/28/17 - Discharge Diagnosis (1) Sepsis Priority: Primary Status: Acute Comments: present on admission due to urinary tract infection. Has resolved at my time of review. Qualifiers: Sepsis type: sepsis due to unspecified organism Qualified Code(s): A41.9 - Sepsis, unspecified organism Date of admission: 10/26/17 17:57 Primary care physician: PCP NONE Hospital course: Mr. Day is a 37 year old male - Time Spent with Patient Total time spent providing and/or coordinating discharge services: - Constitutional Vitals: Temp Pulse Resp BP Pulse Ox 97.6 F 53 16 159/80 97 10/28/17 07:11 10/28/17 07:11 10/28/17 07:11 10/28/17 07:11 10/28/17 07:11 - Attending Attestation I examined this patient and my medical decision-making was reviewed with the Resident Physician. I agree with the documented findings, disposition and treatment plan as described except to the extent set forth below. Seen. He has made significant improvement Last episode greater than 24 hours ago. He states his headache has resolved. MARIALUISA has resolved. Noted to have persistently elevated blood pressure during this admission, the patient reports he his primary care physician, for possible initiation of antihypertensives if his blood pressure remains elevated.He is educated on necessity for compliance with antibiotics and antifungals upon discharge. HIV testing will be done prior to discharge. Rest of details as in the resident physician's documentation.
== END 2017-10-28 15:30 | disposition home or self-care (01) ==
LOC: EMEROO 11:03 → 3ANU 11:03 → SUATTDRO 17:57 → 3ANU 18:15
PROVIDERS: ADMIT Family Medicine; ATTEND Internal Medicine